=== PATIENT | female | born 1935 | race Hispanic/Latino ===

== ENCOUNTER → 2017-11-16 | Outpatient (CLI) | payer MEDICARE ==
[~2017-11-16] MED LIST: AMLO2.5T PO; AMOX-426 PO; CARV12.511 PO; CILO100T PO; CITA10TA7 PO; CLOP75TA32 PO; CYCL30DR OU; DOXY-252 PO; ECOTRIN PO; FURO20TA4 PO; ISOS30TA6 PO; LATA2.5D2 OU; LEVO75TA10 PO; LORA-997 PO; LOVA20TA3 PO; NITR1PAT6 TD; PANT20TA12 PO
== END | disposition home or self-care (01) ==
LOC: SHCH 13:32
PROVIDERS: ATTEND Internal Medicine Cardiovascular Disease
DX: I73.9 Peripheral vascular disease, unspecified (principal)
CPT/HCPCS: 93925

== ENCOUNTER 2017-11-23 10:16 | Observation (INO) | payer MEDICARE ==
[2017-11-22 08:50] VITALS: BP 177/91
[2017-11-22 08:54] LABS: BASOPHILS % (AUTO) 0.6 % (0.0-5.0); EOSINOPHILS % (AUTO) 5.8 % (0.0-8.0); HEMATOCRIT 33.2 % (36-48); LYMPHOCYTES % (AUTO) 44.7 % (21.0-51.0); MEAN CORPUSCULAR HEMOGLOBIN 30.1 pg (27.0-33.0); MEAN CORPUSCULAR HGB CONC 33.9 g/dL (32.0-36.0); MONOCYTES % (AUTO) 9.8 % (3.0-13.0); NEUTROPHILS % (AUTO) 39.1 % (40.0-77.0); PLATELET COUNT (AUTO) 378 K/uL (130-400); RED BLOOD CELL COUNT(AUTO) 3.73 MIL/uL (4.00-5.50); RED CELL DISTRIBUTION WIDTH 13.4 % (11.0-15.5); WHITE BLOOD COUNT (AUTO) 8.3 K/uL (4.8-10.8)
[2017-11-22 08:58] LABS: APPEARANCE,URINE Cloudy (CLEAR); BILIRUBIN,URINE Negative (NEGATIVE); COLOR,URINE Yellow (YELLOW); GLUCOSE, URINE (UA) Negative (NEGATIVE); KETONES,URINE Negative (NEGATIVE); LEUKOCYTE ESTERASE ,URINE Large (NEGATIVE); NITRATE,URINE Negative (NEGATIVE); OCCULT BLOOD,URINE Negative (NEGATIVE); PH,URINE 6.5 (5.0-8.0); PROTEIN,URINE Negative (NEGATIVE); UROBILINOGEN,URINE 0.2 mg/dL (0.2-1.0)
[2017-11-22 09:00] LABS: CREATININE 1.3 mg/dL (0.5-1.5); POTASSIUM 3.8 mmol/L (3.5-5.1)
[2017-11-22 09:16] LABS: BACTERIA,URINE Many /HPF (None Seen); RBC,URINE 0-1 /HPF (0-1); WBC,URINE 51-100 /HPF (0-1)
[2017-11-22 09:16] LABS: INR 0.93 (0.85-1.15); PARTIAL THROMBOPLASTIN TIME 26.5 SEC (26.3-35.5); PROTHROMBIN TIME 9.8 SEC (9.6-11.6)
[2017-11-22 09:17] LABS: SQUAMOUS EPITHELIAL CELL,UR Rare /LPF (0-2)
[~2017-11-23] VITALS: Ht 147.3 cm; Wt 51.7 kg
[~2017-11-23 10:16] MED LIST changes: -AMOX-426 PO; -CILO100T PO; -CITA10TA7 PO; -DOXY-252 PO; -NITR1PAT6 TD
[2017-11-23] MEDS ORDERED: NITR1PAT6 TD (12:03)
[2017-11-23] MEDS ORDERED: SODIUM CHLORIDE 0.9% 1000ML 1,000 ML IV ONE (12:05)
[2017-11-23] MEDS ORDERED: LIDOCAINE HCL 2% 20ML ONE (15:52)
[2017-11-23] MEDS ORDERED: ISOVUE-300 100 ML VIAL IV ONE ×2 (15:52→16:56)
[2017-11-23] MEDS ORDERED: NITROGLYCERIN 5 MG/ML 10 ML VIAL IV ONE (15:52)
[2017-11-23] MEDS ORDERED: HEPARIN SODIUM 1000UNIT/ML 10ML VIAL ONE (15:52)
[2017-11-23] MEDS ORDERED: HYDRALAZINE HCL 20 MG/ML VIAL ONE (17:06)
[2017-11-23] MEDS ORDERED: LABETALOL 20 MG/4 ML DISP.SYRIN IV ONE (17:15)
[2017-11-23] MEDS ORDERED: SODIUM CHLORIDE 0.9% 1000ML 1,000 ML IV SCH (17:24)
[2017-11-23] MEDS ORDERED: CARVEDILOL 12.5 MG TABLET PO PRN (17:30)
[2017-11-23] MEDS ORDERED: NITROGLYCERIN 0.2 MG/HR PATCH TD SCH (17:30)
[2017-11-23] MEDS ORDERED: CILO100T PO (17:31)
[2017-11-23] MEDS ORDERED: ACETAMINOPHEN-CODEINE 300/30MG TAB PO PRN ×2 (17:45)
[2017-11-23 18:23] VITALS: BP 137/61
[2017-11-23] MEDS ORDERED: ACETAMINOPHEN-CODEINE 300/30MG TAB ONE (18:36)
[2017-11-23 19:10] LABS: POTASSIUM 3.4 mmol/L (3.5-5.1)
[2017-11-23 20:00] VITALS: BP 137/61
[2017-11-23] MEDS: CYCLOSPORINE OU SCH (21:00)
[2017-11-23] MEDS: CILOSTAZOL 100 MG TAB PO SCH (21:26)
[2017-11-23] MEDS: LATANOPROST 2.5 ML DROPS OU SCH (21:26)
[2017-11-23 23:38] VITALS: BP 127/53
[2017-11-24] MEDS ORDERED: CEFTRIAXONE 1GM/D5W 50ML 50 ML IV SCH
[2017-11-24] MEDS ORDERED: CEFTRIAXONE SODIUM 1 GM ONE (00:03)
[2017-11-24 03:56] VITALS: BP 140/56
[2017-11-24 04:25] LABS: APPEARANCE,URINE Cloudy (CLEAR); BILIRUBIN,URINE Negative (NEGATIVE); COLOR,URINE Yellow (YELLOW); GLUCOSE, URINE (UA) Negative (NEGATIVE); KETONES,URINE Negative (NEGATIVE); LEUKOCYTE ESTERASE ,URINE Trace (NEGATIVE); NITRATE,URINE Negative (NEGATIVE); OCCULT BLOOD,URINE Negative (NEGATIVE); PROTEIN,URINE Negative (NEGATIVE); UROBILINOGEN,URINE 0.2 mg/dL (0.2-1.0)
[2017-11-24 04:38] LABS: HEMATOCRIT 27.1 % (36-48); MEAN CORPUSCULAR HEMOGLOBIN 30.1 pg (27.0-33.0); MEAN CORPUSCULAR VOLUME 88.5 fL (79-99); PLATELET COUNT (AUTO) 340 K/uL (130-400); RED BLOOD CELL COUNT(AUTO) 3.06 MIL/uL (4.00-5.50); RED CELL DISTRIBUTION WIDTH 13.5 % (11.0-15.5); WHITE BLOOD COUNT (AUTO) 7.2 K/uL (4.8-10.8)
[2017-11-24 04:45] LABS: AMORPHOUS SEDIMENT,UR Few /LPF (None Seen); BACTERIA,URINE None Seen /HPF (None Seen); RBC,URINE None Seen /HPF (0-1); SQUAMOUS EPITHELIAL CELL,UR Rare /LPF (0-2); WBC,URINE 0-1 /HPF (0-1)
[2017-11-24 04:58] LABS: ALBUMIN 2.4 g/dL (3.5-5.0); BILIRUBIN,TOTAL 0.2 mg/dL (0.2-1.0); CREATININE 1.2 mg/dL (0.5-1.5); TOTAL PROTEIN, SERUM 6.4 g/dL (6.0-8.3)
[2017-11-24] MEDS ORDERED: LEVOTHYROXINE 75 MCG TABLET PO SCH (06:30)
[2017-11-24 07:00] VITALS: BP 139/57
[2017-11-24] MEDS ORDERED: AMLODIPINE BESYLATE 2.5 MG TAB PO SCH (09:00)
[2017-11-24] MEDS ORDERED: PANTOPRAZOLE SODIUM 40 MG TABLET.DR PO SCH (09:00)
[2017-11-24] MEDS: CYCLOSPORINE OU SCH ×2 (09:00→21:00)
[2017-11-24] MEDS ORDERED: ISOSORBIDE MONO 30MG TAB SR PO SCH (09:00)
[2017-11-24] MEDS ORDERED: CLOPIDOGREL BISULFATE 75 MG TAB PO SCH (09:00)
[2017-11-24 10:30] LABS: % IRON SATURATION 9.4 % (22-44)
[2017-11-24 10:38] LABS: RETICULOCYTE % (AUTO) 1.79 % (0.42-2.23)
[2017-11-24] MEDS ORDERED: ASPIRIN 81 MG EC TAB PO SCH (12:00)
[2017-11-24] MEDS ORDERED: LORATADINE 10 MG TABLET PO SCH (12:00)
[2017-11-24 12:14] VITALS: BP 132/59
[2017-11-24] MEDS: CILOSTAZOL 100 MG TAB PO SCH ×2 (14:55→21:22)
[2017-11-24 16:00] VITALS: BP 126/53
[2017-11-24 19:20] VITALS: BP 122/48
[2017-11-24] MEDS ORDERED: CEFTRIAXONE SODIUM 1 GM IVP SCH (21:00)
[2017-11-24] MEDS: LATANOPROST 2.5 ML DROPS OU SCH (21:22)
[2017-11-25] MEDS ORDERED: FUROSEMIDE 20 MG TABLET PO SCH (09:00)
== END 2017-11-24 21:30 | disposition home or self-care (01) ==
LOC: DAH 10:16 → 3DH 10:17 → DAH 10:17
PROVIDERS: ADMIT Internal Medicine; ATTEND Internal Medicine
DX: I70.221 Atherosclerosis of native arteries of extremities with rest pain, right leg (principal); E11.51 Type 2 diabetes mellitus with diabetic peripheral angiopathy without gangrene; E78.5 Hyperlipidemia, unspecified; E87.6 Hypokalemia; I10 Essential (primary) hypertension; I25.10 Atherosclerotic heart disease of native coronary artery without angina pectoris; I49.5 Sick sinus syndrome; N39.0 Urinary tract infection, site not specified; Z82.49 Family history of ischemic heart disease and other diseases of the circulatory system; Z85.3 Personal history of malignant neoplasm of breast; Z95.0 Presence of cardiac pacemaker; Z95.1 Presence of aortocoronary bypass graft; Z95.5 Presence of coronary angioplasty implant and graft
CPT/HCPCS: 36415 ×3; 37224; 71045; 75625; 75710; 80048; 80051; 80053; 81001 ×2; 82607; 82728; 82746; 82948 ×6; 83735; 85025; 85027; 85347; 85610; 85730; 87088; 93005; 96374; A4218 ×2; A4344; A4606; C1725 ×2; C1760; C1769 ×2; C1893; C1894; G0378 ×35; J0360; J0696 ×3; J1644; J3490 ×2; J7030 ×2; Q9967

== ENCOUNTER 2017-12-01 18:52 | Inpatient (IN) | payer MEDICARE ==
[~2017-12-01] VITALS: Ht 160 cm; Wt 55.2 kg
[~2017-12-01 18:52] MED LIST changes: +CILO100T PO; -LOVA20TA3 PO; +NITR1PAT6 TD
[2017-12-01 20:09] LABS: EOSINOPHILS % (AUTO) 4.5 % (0.0-8.0); LYMPHOCYTES % (AUTO) 38.5 % (21.0-51.0); MEAN CORPUSCULAR HEMOGLOBIN 30.3 pg (27.0-33.0); MEAN CORPUSCULAR HGB CONC 34.3 g/dL (32.0-36.0); MEAN CORPUSCULAR VOLUME 88.3 fL (79-99); MONOCYTES % (AUTO) 8.5 % (3.0-13.0); NEUTROPHILS % (AUTO) 46.5 % (40.0-77.0); PLATELET COUNT (AUTO) 407 K/uL (130-400); RED BLOOD CELL COUNT(AUTO) 3.39 MIL/uL (4.00-5.50); RED CELL DISTRIBUTION WIDTH 13.4 % (11.0-15.5); WHITE BLOOD COUNT (AUTO) 9.4 K/uL (4.8-10.8)
[2017-12-01 20:26] LABS: CREATININE 1.4 mg/dL (0.5-1.5); INR 0.92 (0.85-1.15); PARTIAL THROMBOPLASTIN TIME 26.3 SEC (26.3-35.5); POTASSIUM 3.7 mmol/L (3.5-5.1); PROTHROMBIN TIME 9.7 SEC (9.6-11.6)
[2017-12-01 20:39] LABS: BILIRUBIN,TOTAL 0.3 mg/dL (0.2-1.0); CREATINE KINASE MB 3.9 ng/mL (0.5-3.6); TOTAL PROTEIN, SERUM 8.3 g/dL (6.0-8.3)
[2017-12-01 20:52] LABS: B-TYPE NATRIURETIC PEPTIDE 218 pg/mL (0-100)
[2017-12-01 22:51] LABS: APPEARANCE,URINE Clear (CLEAR); BILIRUBIN,URINE Negative (NEGATIVE); COLOR,URINE Yellow (YELLOW); GLUCOSE, URINE (UA) Negative (NEGATIVE); KETONES,URINE Negative (NEGATIVE); LEUKOCYTE ESTERASE ,URINE Negative (NEGATIVE); NITRATE,URINE Negative (NEGATIVE); OCCULT BLOOD,URINE Negative (NEGATIVE); PH,URINE 6.5 (5.0-8.0); PROTEIN,URINE Negative (NEGATIVE); UROBILINOGEN,URINE 0.2 mg/dL (0.2-1.0)
[2017-12-02] VITALS (9 sets, daily range): BP systolic 126–160; BP diastolic 37–103
[2017-12-02] MEDS ORDERED: GLUCAGON 1MG KIT 1 MG ML IM PRN (02:45)
[2017-12-02] MEDS ORDERED: DEXTROSE 50%-WATER 50 ML DISP.SYRIN IV PRN (02:45)
[2017-12-02] MEDS ORDERED: LIDOCAINE HCL-MPF 1% 2ML VIAL IVP PRN (02:45)
[2017-12-02] MEDS ORDERED: ACETAMINOPHEN 325 MG TAB PO PRN (02:45)
[2017-12-02] MEDS ORDERED: HYDRALAZINE HCL 20 MG/ML VIAL IV PRN (02:45)
[2017-12-02] MEDS ORDERED: POTASSIUM CHLORIDE 20MEQ/100ML 100 ML IV PRN (02:45)
[2017-12-02] MEDS ORDERED: LACTULOSE 20 GM/30 ML UDCUP PO PRN (02:45)
[2017-12-02] MEDS ORDERED: POTASSIUM CHLORIDE 10% ELIXIR 20 MEQ/15 ML UDCUP PO PRN (02:45)
[2017-12-02] MEDS ORDERED: FUROSEMIDE 10 MG/ML 2ML VIAL ONE (02:52)
[2017-12-02 04:18] LABS: CREATINE KINASE MB 2.7 ng/mL (0.5-3.6); CREATINE KINASE, TOTAL 86 U/L (21-232); MYOGLOBIN 245 ng/mL (10-92); TROPONIN I < 0.04 ng/mL (0.00-0.06)
[2017-12-02] MEDS ORDERED: HYDRALAZINE HCL 20 MG/ML VIAL ONE (04:25)
[2017-12-02] MEDS ORDERED: ACETAMINOPHEN 325 MG TAB ONE (05:20)
[2017-12-02 07:11] LABS: BASOPHILS % (AUTO) 0.9 % (0.0-5.0); EOSINOPHILS % (AUTO) 4.1 % (0.0-8.0); HEMATOCRIT 27.5 % (36-48); LYMPHOCYTES % (AUTO) 27.2 % (21.0-51.0); MEAN CORPUSCULAR HEMOGLOBIN 29.8 pg (27.0-33.0); MEAN CORPUSCULAR HGB CONC 34.1 g/dL (32.0-36.0); MEAN CORPUSCULAR VOLUME 87.3 fL (79-99); MONOCYTES % (AUTO) 11.5 % (3.0-13.0); NEUTROPHILS % (AUTO) 56.3 % (40.0-77.0); PLATELET COUNT (AUTO) 366 K/uL (130-400); RED BLOOD CELL COUNT(AUTO) 3.15 MIL/uL (4.00-5.50); RED CELL DISTRIBUTION WIDTH 13.3 % (11.0-15.5); WHITE BLOOD COUNT (AUTO) 9.7 K/uL (4.8-10.8)
[2017-12-02] MEDS: INSULIN HUMULIN R 100 UNIT/ML 3ML SQ SCH ×4 (07:30→21:00)
[2017-12-02 07:36] LABS: CREATINE KINASE MB 3.1 ng/mL (0.5-3.6); CREATINE KINASE, TOTAL 106 U/L (21-232); MYOGLOBIN 294 ng/mL (10-92); TROPONIN I < 0.04 ng/mL (0.00-0.06)
[2017-12-02 07:37] LABS: HEMOGLOBIN A1C 5.8 % (4.0-6.0)
[2017-12-02 07:39] LABS: CREATININE 1.3 mg/dL (0.5-1.5); POTASSIUM 3.4 mmol/L (3.5-5.1); THYROID STIMULATING HORMONE 2.5 uIU/mL (0.36-3.74)
[2017-12-02 08:47] LABS: ERYTHROCYTE SEDIMENTATION RATE 90 MM/HR (0-15)
[2017-12-02] MEDS ORDERED: AMOX-426 PO (08:59)
[2017-12-02] MEDS ORDERED: ENOXAPARIN SODIUM 30 MG/0.3 ML SQ SCH (09:00)
[2017-12-02] MEDS ORDERED: NITROGLYCERIN 0.2 MG/HR PATCH TD SCH (10:15)
[2017-12-02] MEDS ORDERED: CILOSTAZOL 100 MG TAB PO SCH (10:15)
[2017-12-02] MEDS ORDERED: AMOXICILLIN/POTASSIUM CLAV 500-125 TABLET PO SCH (10:15)
[2017-12-02 12:04] LABS: CREATINE KINASE, TOTAL 102 U/L (21-232); MYOGLOBIN 257 ng/mL (10-92); TROPONIN I < 0.04 ng/mL (0.00-0.06)
[2017-12-02] MEDS: LORATADINE 10 MG TABLET PO SCH (13:26)
[2017-12-02] MEDS: ASPIRIN 81 MG EC TAB PO SCH (13:26)
[2017-12-02] MEDS: FAMOTIDINE 20MG TAB 20 MG TAB PO SCH ×2 (13:26→21:17)
[2017-12-02] MEDS: FUROSEMIDE 10 MG/ML 2ML VIAL IV SCH ×2 (13:27→21:19)
[2017-12-02] MEDS: POTASSIUM CHLORIDE 20 MEQ ERTAB PO PRN ×2 (14:11→18:24)
[2017-12-02] MEDS: ENOXAPARIN SODIUM 60 MG/0.6 ML SQ SCH ×2 (14:35→21:19)
[2017-12-02] MEDS: CYCLOSPORINE OU SCH (21:00)
[2017-12-02] MEDS: LATANOPROST 2.5 ML DROPS OU SCH (21:17)
[2017-12-02] MEDS: CARVEDILOL 3.125 MG TABLET PO SCH (21:17)
[2017-12-03 03:36] VITALS: BP 125/59
[2017-12-03 05:26] LABS: CREATININE 1.3 mg/dL (0.5-1.5); POTASSIUM 3.6 mmol/L (3.5-5.1)
[2017-12-03] MEDS: INSULIN HUMULIN R 100 UNIT/ML 3ML SQ SCH ×4 (05:48→21:00)
[2017-12-03] MEDS: LEVOTHYROXINE 75 MCG TABLET PO SCH ×2 (05:58→06:58)
[2017-12-03] MEDS: POTASSIUM CHLORIDE 20 MEQ ERTAB PO PRN ×2 (05:58→06:59)
[2017-12-03 07:00] VITALS: BP 113/50
[2017-12-03] MEDS: CYCLOSPORINE OU SCH ×2 (09:00→21:00)
[2017-12-03] MEDS: FAMOTIDINE 20MG TAB 20 MG TAB PO SCH ×2 (09:00→22:19)
[2017-12-03] MEDS: FUROSEMIDE 10 MG/ML 2ML VIAL IV SCH ×2 (10:16→22:18)
[2017-12-03] MEDS: ISOSORBIDE MONO 30MG TAB SR PO SCH (10:16)
[2017-12-03] MEDS: CLOPIDOGREL BISULFATE 75 MG TAB PO SCH (10:16)
[2017-12-03] MEDS: ENOXAPARIN SODIUM 60 MG/0.6 ML SQ SCH (10:16)
[2017-12-03] MEDS: CARVEDILOL 3.125 MG TABLET PO SCH ×2 (10:24→22:19)
[2017-12-03 11:00] VITALS: BP 170/71
[2017-12-03] MEDS: ASPIRIN 81 MG EC TAB PO SCH (12:20)
[2017-12-03] MEDS: LORATADINE 10 MG TABLET PO SCH (12:20)
[2017-12-03 16:00] VITALS: BP 124/71
[2017-12-03 20:09] VITALS: BP 136/59
[2017-12-03] MEDS: LATANOPROST 2.5 ML DROPS OU SCH (22:18)
[2017-12-04] VITALS (7 sets, daily range): BP systolic 125–168; BP diastolic 46–70
[2017-12-04 04:33] LABS: CREATININE 1.4 mg/dL (0.5-1.5); POTASSIUM 3.6 mmol/L (3.5-5.1)
[2017-12-04] MEDS: INSULIN HUMULIN R 100 UNIT/ML 3ML SQ SCH ×4 (05:19→21:00)
[2017-12-04] MEDS: LEVOTHYROXINE 75 MCG TABLET PO SCH (06:24)
[2017-12-04] MEDS: POTASSIUM CHLORIDE 20 MEQ ERTAB PO PRN (06:41)
[2017-12-04] MEDS ORDERED: FUROSEMIDE 20 MG TABLET PO SCH (09:00)
[2017-12-04] MEDS: CLOPIDOGREL BISULFATE 75 MG TAB PO SCH (10:34)
[2017-12-04] MEDS: ASPIRIN 81 MG EC TAB PO SCH (10:34)
[2017-12-04] MEDS: LORATADINE 10 MG TABLET PO SCH (10:34)
[2017-12-04] MEDS: ISOSORBIDE MONO 30MG TAB SR PO SCH (10:34)
[2017-12-04] MEDS: CARVEDILOL 3.125 MG TABLET PO SCH ×2 (10:34→20:34)
[2017-12-04] MEDS: FUROSEMIDE 20 MG TABLET PO SCH ×2 (10:35→17:27)
[2017-12-04] MEDS: FAMOTIDINE 20MG TAB 20 MG TAB PO SCH (10:38)
[2017-12-04] MEDS: ENOXAPARIN SODIUM 60 MG/0.6 ML SQ SCH (10:40)
[2017-12-04] MEDS: CYCLOSPORINE OU SCH ×2 (10:49→20:40)
[2017-12-04] MEDS ORDERED: VANCOMYCIN PROTOCOL PER PHARMACY IV SCH (11:45)
[2017-12-04] MEDS ORDERED: COMPOUND IV REFRIGERATED 1 EACH IVSOLN MISC PRN (12:00)
[2017-12-04] MEDS ORDERED: VANCOMYCIN 1.75 GM in SODIUM CHLORIDE 0.9% 250 ML IV ONE (12:00)
[2017-12-04] MEDS ORDERED: PHARMACY COMMUNICATION MISC SCH (12:00)
[2017-12-04] MEDS: IPRATROPIUM 0.5 MG/2.5 ML INH IH SCH (18:27)
[2017-12-04] MEDS: LATANOPROST 2.5 ML DROPS OU SCH (20:35)
[2017-12-05] MEDS: IPRATROPIUM 0.5 MG/2.5 ML INH IH SCH ×4 (00:04→19:02)
[2017-12-05 03:41] VITALS: BP 129/39
[2017-12-05] MEDS: LEVOTHYROXINE 75 MCG TABLET PO SCH (05:45)
[2017-12-05] MEDS: INSULIN HUMULIN R 100 UNIT/ML 3ML SQ SCH ×4 (06:31→21:00)
[2017-12-05 07:17] VITALS: BP 131/53
[2017-12-05] MEDS: CLOPIDOGREL BISULFATE 75 MG TAB PO SCH (08:52)
[2017-12-05] MEDS: PANTOPRAZOLE SODIUM 40 MG TABLET.DR PO SCH (08:52)
[2017-12-05] MEDS: ENOXAPARIN SODIUM 60 MG/0.6 ML SQ SCH (08:52)
[2017-12-05] MEDS: CARVEDILOL 6.25 MG TABLET PO SCH ×2 (08:53→22:57)
[2017-12-05] MEDS: ISOSORBIDE MONO 30MG TAB SR PO SCH (08:53)
[2017-12-05] MEDS: FUROSEMIDE 20 MG TABLET PO SCH (08:54)
[2017-12-05] MEDS: CYCLOSPORINE OU SCH ×2 (09:00→22:58)
[2017-12-05 11:32] VITALS: BP 108/60
[2017-12-05] MEDS: ASPIRIN 81 MG EC TAB PO SCH (11:54)
[2017-12-05] MEDS: LORATADINE 10 MG TABLET PO SCH (11:54)
[2017-12-05] MEDS: VANCOMYCIN 750MG + NS 250 ML IV SCH ×2 (12:00)
[2017-12-05 16:00] VITALS: BP 116/52
[2017-12-05 20:00] VITALS: BP 145/60
[2017-12-05] MEDS: LATANOPROST 2.5 ML DROPS OU SCH (22:57)
[2017-12-06] VITALS: BP 136/54
[2017-12-06] MEDS: IPRATROPIUM 0.5 MG/2.5 ML INH IH SCH ×5 (00:32→23:47)
[2017-12-06 03:58] LABS: HEMATOCRIT 25.1 % (36-48); MEAN CORPUSCULAR HEMOGLOBIN 31.1 pg (27.0-33.0); MEAN CORPUSCULAR HGB CONC 35.9 g/dL (32.0-36.0); MEAN CORPUSCULAR VOLUME 86.6 fL (79-99); PLATELET COUNT (AUTO) 371 K/uL (130-400); RED CELL DISTRIBUTION WIDTH 13.5 % (11.0-15.5); WHITE BLOOD COUNT (AUTO) 8.8 K/uL (4.8-10.8)
[2017-12-06 04:00] VITALS: BP 120/41
[2017-12-06] MEDS: INSULIN HUMULIN R 100 UNIT/ML 3ML SQ SCH ×4 (05:55→21:00)
[2017-12-06] MEDS: LEVOTHYROXINE 75 MCG TABLET PO SCH (05:57)
[2017-12-06 08:00] VITALS: BP 150/70
[2017-12-06] MEDS: CYCLOSPORINE OU SCH ×2 (09:00→22:14)
[2017-12-06] MEDS: PANTOPRAZOLE SODIUM 40 MG TABLET.DR PO SCH (10:17)
[2017-12-06] MEDS: CLOPIDOGREL BISULFATE 75 MG TAB PO SCH (10:17)
[2017-12-06] MEDS: FUROSEMIDE 20 MG TABLET PO SCH (10:17)
[2017-12-06] MEDS: ISOSORBIDE MONO 30MG TAB SR PO SCH (10:18)
[2017-12-06] MEDS: CARVEDILOL 6.25 MG TABLET PO SCH ×2 (10:18→22:14)
[2017-12-06] MEDS: HONEY 1 APPL/ML TUBE TP SCH (10:19)
[2017-12-06] MEDS: ENOXAPARIN SODIUM 60 MG/0.6 ML SQ SCH (10:19)
[2017-12-06 11:00] VITALS: BP 132/61
[2017-12-06] MEDS: LORATADINE 10 MG TABLET PO SCH (12:40)
[2017-12-06] MEDS: AMOXICILLIN/POTASSIUM CLAV 500-125 TABLET PO SCH ×2 (12:40→22:11)
[2017-12-06] MEDS: ASPIRIN 81 MG EC TAB PO SCH (12:40)
[2017-12-06] MEDS: VANCOMYCIN 750MG + NS 250 ML IV SCH ×2 (12:40)
[2017-12-06 16:00] VITALS: BP 126/56
[2017-12-06 20:00] VITALS: BP 144/62
[2017-12-06] MEDS: LATANOPROST 2.5 ML DROPS OU SCH (22:12)
[2017-12-07] VITALS (7 sets, daily range): BP systolic 125–171; BP diastolic 51–69
[2017-12-07] MEDS: LEVOTHYROXINE 75 MCG TABLET PO SCH (06:22)
[2017-12-07] MEDS: INSULIN HUMULIN R 100 UNIT/ML 3ML SQ SCH ×4 (06:34→20:40)
[2017-12-07] MEDS: IPRATROPIUM 0.5 MG/2.5 ML INH IH SCH ×3 (07:09→19:26)
[2017-12-07] MEDS: FUROSEMIDE 20 MG TABLET PO SCH (09:20)
[2017-12-07] MEDS: ISOSORBIDE MONO 30MG TAB SR PO SCH (09:20)
[2017-12-07] MEDS: AMOXICILLIN/POTASSIUM CLAV 500-125 TABLET PO SCH ×2 (09:21→23:16)
[2017-12-07] MEDS: CLOPIDOGREL BISULFATE 75 MG TAB PO SCH (09:21)
[2017-12-07] MEDS: CARVEDILOL 6.25 MG TABLET PO SCH ×2 (09:21→20:40)
[2017-12-07] MEDS: PANTOPRAZOLE SODIUM 40 MG TABLET.DR PO SCH (09:21)
[2017-12-07] MEDS: CYCLOSPORINE OU SCH ×2 (09:27→20:40)
[2017-12-07] MEDS: HONEY 1 APPL/ML TUBE TP SCH (15:05)
[2017-12-07] MEDS: ASPIRIN 81 MG EC TAB PO SCH (15:12)
[2017-12-07] MEDS: LORATADINE 10 MG TABLET PO SCH (15:12)
[2017-12-07] MEDS: VANCOMYCIN 750MG + NS 250 ML IV SCH ×2 (17:12)
[2017-12-07] MEDS: ENOXAPARIN SODIUM 60 MG/0.6 ML SQ SCH (17:14)
[2017-12-07] MEDS: LATANOPROST 2.5 ML DROPS OU SCH (20:39)
[2017-12-08] MEDS: IPRATROPIUM 0.5 MG/2.5 ML INH IH SCH ×4 (01:07→18:31)
[2017-12-08 04:00] VITALS: BP 151/74
[2017-12-08] MEDS: INSULIN HUMULIN R 100 UNIT/ML 3ML SQ SCH ×2 (06:38→11:30)
[2017-12-08] MEDS: LEVOTHYROXINE 75 MCG TABLET PO SCH (06:45)
[2017-12-08 08:14] VITALS: BP 167/71
[2017-12-08] MEDS: FUROSEMIDE 20 MG TABLET PO SCH (08:16)
[2017-12-08] MEDS: PANTOPRAZOLE SODIUM 40 MG TABLET.DR PO SCH (08:16)
[2017-12-08] MEDS: ISOSORBIDE MONO 30MG TAB SR PO SCH (08:16)
[2017-12-08] MEDS: CLOPIDOGREL BISULFATE 75 MG TAB PO SCH (08:16)
[2017-12-08] MEDS: CARVEDILOL 6.25 MG TABLET PO SCH (08:17)
[2017-12-08 12:00] VITALS: BP 150/60
[2017-12-08] MEDS: VANCOMYCIN 750MG + NS 250 ML IV SCH ×2 (14:20)
[2017-12-08] MEDS: ASPIRIN 81 MG EC TAB PO SCH (14:20)
[2017-12-08] MEDS: AMOXICILLIN/POTASSIUM CLAV 500-125 TABLET PO SCH (14:20)
[2017-12-08] MEDS: LORATADINE 10 MG TABLET PO SCH (14:21)
[2017-12-08 16:00] VITALS: BP 145/63
== END 2017-12-08 19:45 | DRG 622 ==
LOC: EDH 18:52 → EDHIP 23:30 → 2CH 12-02 08:06 → 3AH 12-05 16:12
PROVIDERS: ADMIT Internal Medicine; ATTEND Internal Medicine
PROC: 0JBR0ZZ Excision of Left Foot Subcutaneous Tissue and Fascia, Open Approach (ICD-10-PCS; principal; 2017-12-03)
DX: E11.621 Type 2 diabetes mellitus with foot ulcer (principal); J96.90 Respiratory failure, unspecified, unspecified whether with hypoxia or hypercapnia; M86.672 Other chronic osteomyelitis, left ankle and foot; E11.51 Type 2 diabetes mellitus with diabetic peripheral angiopathy without gangrene; E11.22 Type 2 diabetes mellitus with diabetic chronic kidney disease; L03.116 Cellulitis of left lower limb; I25.82 Chronic total occlusion of coronary artery; I13.0 Hypertensive heart and chronic kidney disease with heart failure and stage 1 through stage 4 chronic kidney disease, or unspecified chronic kidney disease; I48.91 Unspecified atrial fibrillation; L97.529 Non-pressure chronic ulcer of other part of left foot with unspecified severity; D64.9 Anemia, unspecified; E03.9 Hypothyroidism, unspecified; E11.649 Type 2 diabetes mellitus with hypoglycemia without coma; E11.69 Type 2 diabetes mellitus with other specified complication; E78.5 Hyperlipidemia, unspecified; F02.80 Dementia in other diseases classified elsewhere, unspecified severity, without behavioral disturbance, psychotic disturbance, mood disturbance, and anxiety; G30.9 Alzheimer's disease, unspecified; I25.10 Atherosclerotic heart disease of native coronary artery without angina pectoris; I48.2 Chronic atrial fibrillation; I50.9 Heart failure, unspecified; J84.10 Pulmonary fibrosis, unspecified; L60.0 Ingrowing nail; N18.3 Chronic kidney disease, stage 3 (moderate); Z74.01 Bed confinement status; Z85.3 Personal history of malignant neoplasm of breast; Z90.11 Acquired absence of right breast and nipple; Z95.0 Presence of cardiac pacemaker; Z95.5 Presence of coronary angioplasty implant and graft
CPT/HCPCS: 36415; 71045; 71250; 73620; 78315; 80048; 80053; 80061; 80202; 81003; 82550; 82553; 82948; 83036; 83605; 83874; 83880; 84443; 84484; 85025; 85027; 85610; 85651; 85730; 86141; 87070; 87076; 93005; 93306; 93925; 94640; 94664; 99291; A9503; J0360; J1650; J1815; J1940; J3370; J7030

== ENCOUNTER 2018-07-11 03:19 | Inpatient (IN) | payer MEDICARE ==
[~2018-07-11] VITALS: Ht 152.4 cm; Wt 53.6 kg
[~2018-07-11 03:19] MED LIST changes: -AMLO2.5T PO; +AMLO2.5T3 PO; +AMOX-426 PO
[2018-07-11 03:42] LABS: BASOPHILS % (AUTO) 0.3 % (0.0-5.0); EOSINOPHILS % (AUTO) 0.7 % (0.0-8.0); HEMATOCRIT 28.5 % (36-48); LYMPHOCYTES % (AUTO) 11.9 % (21.0-51.0); MEAN CORPUSCULAR HEMOGLOBIN 24.2 pg (27.0-33.0); MEAN CORPUSCULAR HGB CONC 32.8 g/dL (32.0-36.0); MEAN CORPUSCULAR VOLUME 73.9 fL (79-99); NEUTROPHILS % (AUTO) 81.1 % (40.0-77.0); PLATELET COUNT (AUTO) 324 K/uL (130-400); RED BLOOD CELL COUNT(AUTO) 3.85 MIL/uL (4.00-5.50); WHITE BLOOD COUNT (AUTO) 17.5 K/uL (4.8-10.8)
[2018-07-11] MEDS ORDERED: ACETAMINOPHEN EXTRA STRENGTH 500 MG TABLET ONE (03:50)
[2018-07-11] MEDS ORDERED: CEFTRIAXONE SODIUM 2 GM VIAL ONE (03:50)
[2018-07-11] MEDS ORDERED: SODIUM CHLORIDE 0.9% 1000ML 1,000 ML IV ONE (03:50)
[2018-07-11 03:56] LABS: CARBON DIOXIDE 28 mmol/L (21-32); CHLORIDE 102 mmol/L (101-111); CREATININE 1.5 mg/dL (0.5-1.5); GLOMERULAR FILTR. RATE CALC 35 mL/min (>60); GLUCOSE,RANDOM 186 mg/dL (70-105); POTASSIUM 3.6 mmol/L (3.5-5.1); SODIUM SERUM 138 mmol/L (136-145); UREA NITROGEN, BLOOD 25 mg/dL (7-18)
[2018-07-11 04:02] LABS: INR 1.02 (0.85-1.15); PARTIAL THROMBOPLASTIN TIME 30.9 SEC (26.3-35.5); PROTHROMBIN TIME 10.7 SEC (9.6-11.6)
[2018-07-11 04:07] LABS: ALANINE AMINOTRANSFERASE 30 U/L (12-78); ALBUMIN 2.9 g/dL (3.5-5.0); ASPARTATE AMINOTRANSFERASE 38 U/L (10-37); BILIRUBIN,TOTAL 0.3 mg/dL (0.2-1.0); CREATINE KINASE, TOTAL 134 U/L (21-232); MYOGLOBIN 407 ng/mL (10-92); TOTAL PROTEIN, SERUM 7.6 g/dL (6.0-8.3); TROPONIN I < 0.04 ng/mL (0.00-0.06)
[2018-07-11 05:26] LABS: APPEARANCE,URINE Clear (CLEAR); BILIRUBIN,URINE Negative (NEGATIVE); COLOR,URINE Yellow (YELLOW); GLUCOSE, URINE (UA) Negative (NEGATIVE); KETONES,URINE Negative (NEGATIVE); LEUKOCYTE ESTERASE ,URINE Moderate (NEGATIVE); NITRATE,URINE Positive (NEGATIVE); OCCULT BLOOD,URINE Trace (NEGATIVE); PH,URINE 5.5 (5.0-8.0); PROTEIN,URINE POS 1+ (NEGATIVE); UROBILINOGEN,URINE 0.2 mg/dL (0.2-1.0)
[2018-07-11 05:40] LABS: BACTERIA,URINE Moderate /HPF (None Seen)
[2018-07-11] MEDS ORDERED: SODIUM CHLORIDE 0.9% 1000ML 1,000 ML IV SCH (06:32)
[2018-07-11] MEDS ORDERED: ONDANSETRON HCL 4 MG/2 ML VIAL IV PRN (06:45)
[2018-07-11] MEDS: CEFTRIAXONE SODIUM 1 GM IVP SCH (06:45)
[2018-07-11] MEDS ORDERED: ACETAMINOPHEN 325 MG TAB PO PRN (06:45)
[2018-07-11 07:00] VITALS: BP 114/51
[2018-07-11 07:14] LABS: HEMOGLOBIN A1C 6.8 % (4.0-6.0)
[2018-07-11] MEDS ORDERED: CETI10TA86 PO (08:24)
[2018-07-11] MEDS ORDERED: APIX2.5T PO (08:24)
[2018-07-11] MEDS ORDERED: CARV6.25 PO (08:24)
[2018-07-11] MEDS ORDERED: FURO20TA4 PO (08:24)
[2018-07-11] MEDS ORDERED: GUAI118L41 PO (08:24)
[2018-07-11] MEDS ORDERED: ENOXAPARIN SODIUM 30 MG/0.3 ML SQ SCH (09:00)
[2018-07-11] MEDS: IPRATROPIUM/ALBUTEROL SULFATE 3 ML SOLUTION IH SCH ×4 (09:45→22:42)
[2018-07-11 11:00] VITALS: BP 137/64
[2018-07-11] MEDS: PANTOPRAZOLE SODIUM 40 MG TABLET.DR PO SCH (11:18)
[2018-07-11 16:00] VITALS: BP 149/64
[2018-07-11] MEDS: LEVOFLOXACIN 250 MG/D5W 50ML 50 ML IV SCH (16:20)
[2018-07-11 20:00] VITALS: BP 150/57
[2018-07-11] MEDS: Cyclosporine (Restasis) 1 EACH OU SCH (21:00)
[2018-07-11] MEDS: CARVEDILOL 6.25 MG TABLET PO SCH (21:10)
[2018-07-11] MEDS: APIXABAN 2.5 MG TABLET PO SCH (21:10)
[2018-07-11] MEDS: LATANOPROST 2.5 ML DROPS OU SCH (21:54)
[2018-07-12] VITALS: BP 151/72
[2018-07-12] MEDS: IPRATROPIUM/ALBUTEROL SULFATE 3 ML SOLUTION IH SCH ×6 (02:18→21:03)
[2018-07-12 03:00] VITALS: BP 138/61
[2018-07-12 04:37] LABS: BASOPHILS % (AUTO) 0.4 % (0.0-5.0); EOSINOPHILS % (AUTO) 4.4 % (0.0-8.0); LYMPHOCYTES % (AUTO) 37.2 % (21.0-51.0); MEAN CORPUSCULAR HGB CONC 32.4 g/dL (32.0-36.0); MEAN CORPUSCULAR VOLUME 74.1 fL (79-99); MONOCYTES % (AUTO) 7.5 % (3.0-13.0); NEUTROPHILS % (AUTO) 50.5 % (40.0-77.0); PLATELET COUNT (AUTO) 228 K/uL (130-400); RED BLOOD CELL COUNT(AUTO) 3.23 MIL/uL (4.00-5.50); RED CELL DISTRIBUTION WIDTH 15.7 % (11.0-15.5); WHITE BLOOD COUNT (AUTO) 9.3 K/uL (4.8-10.8)
[2018-07-12 04:59] LABS: ALBUMIN 2.4 g/dL (3.5-5.0); BILIRUBIN,TOTAL 0.2 mg/dL (0.2-1.0); CREATININE 1.3 mg/dL (0.5-1.5); POTASSIUM 3.6 mmol/L (3.5-5.1); TOTAL PROTEIN, SERUM 6.6 g/dL (6.0-8.3)
[2018-07-12] MEDS: CEFTRIAXONE SODIUM 1 GM IVP SCH (06:16)
[2018-07-12] MEDS: LEVOTHYROXINE 75 MCG TABLET PO SCH (06:16)
[2018-07-12] MEDS: PANTOPRAZOLE SODIUM 40 MG TABLET.DR PO SCH ×2 (06:16→09:29)
[2018-07-12 07:30] VITALS: BP 129/53
[2018-07-12] MEDS: AMLODIPINE BESYLATE 2.5 MG TAB PO SCH (09:00)
[2018-07-12] MEDS: Cyclosporine (Restasis) 1 EACH OU SCH ×2 (09:00→21:00)
[2018-07-12] MEDS: CLOPIDOGREL BISULFATE 75 MG TAB PO SCH (09:28)
[2018-07-12] MEDS: CETIRIZINE HCL 5 MG TABLET PO SCH (09:29)
[2018-07-12] MEDS: CARVEDILOL 6.25 MG TABLET PO SCH ×2 (09:30→21:15)
[2018-07-12] MEDS: APIXABAN 2.5 MG TABLET PO SCH ×2 (09:30→21:16)
[2018-07-12] MEDS: FUROSEMIDE 20 MG TABLET PO SCH (09:30)
[2018-07-12] MEDS: ISOSORBIDE MONO 30MG TAB SR PO SCH (09:31)
[2018-07-12 11:00] VITALS: BP 154/59
[2018-07-12] MEDS: LEVOFLOXACIN 250 MG/D5W 50ML 50 ML IV SCH (13:03)
[2018-07-12 15:59] VITALS: BP 127/55
[2018-07-12 20:00] VITALS: BP 146/69
[2018-07-12] MEDS: LATANOPROST 2.5 ML DROPS OU SCH (21:19)
[2018-07-13] VITALS: BP 132/60
[2018-07-13] MEDS: IPRATROPIUM/ALBUTEROL SULFATE 3 ML SOLUTION IH SCH ×3 (01:24→10:36)
[2018-07-13 04:00] VITALS: BP 157/73
[2018-07-13] MEDS: CEFTRIAXONE SODIUM 1 GM IVP SCH (06:25)
[2018-07-13] MEDS: LEVOTHYROXINE 75 MCG TABLET PO SCH (06:25)
[2018-07-13 06:45] LABS: BASOPHILS % (AUTO) 0.6 % (0.0-5.0); EOSINOPHILS % (AUTO) 7.6 % (0.0-8.0); HEMATOCRIT 25.7 % (36-48); LYMPHOCYTES % (AUTO) 32.8 % (21.0-51.0); MEAN CORPUSCULAR HEMOGLOBIN 24.1 pg (27.0-33.0); MEAN CORPUSCULAR HGB CONC 32.8 g/dL (32.0-36.0); MEAN CORPUSCULAR VOLUME 73.6 fL (79-99); MONOCYTES % (AUTO) 8.4 % (3.0-13.0); NEUTROPHILS % (AUTO) 50.6 % (40.0-77.0); NUCLEATED RED BLOOD CELLS 0.1 % (0.0-0.19); PLATELET COUNT (AUTO) 275 K/uL (130-400); RED BLOOD CELL COUNT(AUTO) 3.49 MIL/uL (4.00-5.50); RED CELL DISTRIBUTION WIDTH 15.7 % (11.0-15.5); WHITE BLOOD COUNT (AUTO) 7.9 K/uL (4.8-10.8)
[2018-07-13 06:54] LABS: CREATININE 1.4 mg/dL (0.5-1.5); POTASSIUM 3.7 mmol/L (3.5-5.1)
[2018-07-13 08:02] VITALS: BP 147/72
[2018-07-13] MEDS: Cyclosporine (Restasis) 1 EACH OU SCH (09:00)
[2018-07-13] MEDS: APIXABAN 2.5 MG TABLET PO SCH (09:22)
[2018-07-13] MEDS: CARVEDILOL 6.25 MG TABLET PO SCH (09:22)
[2018-07-13] MEDS: AMLODIPINE BESYLATE 2.5 MG TAB PO SCH (09:23)
[2018-07-13] MEDS: CETIRIZINE HCL 5 MG TABLET PO SCH (09:23)
[2018-07-13] MEDS: ISOSORBIDE MONO 30MG TAB SR PO SCH (09:23)
[2018-07-13] MEDS: CLOPIDOGREL BISULFATE 75 MG TAB PO SCH (09:23)
[2018-07-13] MEDS: FUROSEMIDE 20 MG TABLET PO SCH (09:27)
[2018-07-13 11:00] VITALS: BP 136/64
[2018-07-13] MEDS ORDERED: LEVO500T2 PO (13:07)
[2018-07-13] MEDS: LEVOFLOXACIN 250 MG/D5W 50ML 50 ML IV SCH (14:29)
== END 2018-07-13 16:30 | disposition home or self-care (01) | DRG 871 ==
LOC: EDH 03:19 → 3CH 05:25
PROVIDERS: ADMIT Internal Medicine; ATTEND Internal Medicine
DX: A41.9 Sepsis, unspecified organism (principal); G93.41 Metabolic encephalopathy; N39.0 Urinary tract infection, site not specified; E44.0 Moderate protein-calorie malnutrition; E87.2 Acidosis; I13.0 Hypertensive heart and chronic kidney disease with heart failure and stage 1 through stage 4 chronic kidney disease, or unspecified chronic kidney disease; E03.9 Hypothyroidism, unspecified; E11.22 Type 2 diabetes mellitus with diabetic chronic kidney disease; E11.65 Type 2 diabetes mellitus with hyperglycemia; E11.51 Type 2 diabetes mellitus with diabetic peripheral angiopathy without gangrene; E78.5 Hyperlipidemia, unspecified; H40.9 Unspecified glaucoma; I25.10 Atherosclerotic heart disease of native coronary artery without angina pectoris; I48.91 Unspecified atrial fibrillation; I50.9 Heart failure, unspecified; N18.9 Chronic kidney disease, unspecified; R65.20 Severe sepsis without septic shock; Z68.23 Body mass index [BMI] 23.0-23.9, adult; Z79.01 Long term (current) use of anticoagulants; Z95.1 Presence of aortocoronary bypass graft; Z85.3 Personal history of malignant neoplasm of breast; Z83.3 Family history of diabetes mellitus; Z82.49 Family history of ischemic heart disease and other diseases of the circulatory system; Z80.8 Family history of malignant neoplasm of other organs or systems; Z83.6 Family history of other diseases of the respiratory system; Z82.0 Family history of epilepsy and other diseases of the nervous system
CPT/HCPCS: 36415; 71045; 80048; 80053; 81001; 82550; 82948; 83036; 83605; 83874; 84484; 85025; 85610; 85730; 87040; 87088; 87804; 87880; 93005; 94640; 94664; J0696; J1650; J1956; J7030

== ENCOUNTER 2019-01-23 07:02 | Inpatient (IN) | payer MEDICARE ==
[~2019-01-23] VITALS: Ht 149.9 cm; Wt 54.6 kg
[~2019-01-23 07:02] MED LIST changes: -AMLO2.5T3 PO; +AMLO2.5T4 PO; +APIX2.5T PO; -CARV12.511 PO; +CARV6.25 PO; +CETI10TA86 PO; +GUAI118L41 PO; +LEVO500T2 PO; -LORA-997 PO
[2019-01-23] MEDS ORDERED: ACETAMINOPHEN 325 MG TAB ONE (07:24)
[2019-01-23] MEDS ORDERED: ZOSYN 3.375GM+NS 50ML 50 ML IV ONE (07:54)
[2019-01-23 08:02] LABS: BASOPHILS % (AUTO) 0.3 % (0.0-5.0); EOSINOPHILS % (AUTO) 0.3 % (0.0-8.0); HEMATOCRIT 36.2 % (36-48); LYMPHOCYTES % (AUTO) 5.2 % (21.0-51.0); MEAN CORPUSCULAR HEMOGLOBIN 26.2 pg (27.0-33.0); MEAN CORPUSCULAR HGB CONC 33.5 g/dL (32.0-36.0); MEAN CORPUSCULAR VOLUME 78.2 fL (79-99); MONOCYTES % (AUTO) 2.7 % (3.0-13.0); NEUTROPHILS % (AUTO) 91.5 % (40.0-77.0); PLATELET COUNT (AUTO) 281 K/uL (130-400); RED BLOOD CELL COUNT(AUTO) 4.63 MIL/uL (4.00-5.50); WHITE BLOOD COUNT (AUTO) 12.3 K/uL (4.8-10.8)
[2019-01-23 08:17] LABS: CREATININE 1.6 mg/dL (0.5-1.5); POTASSIUM 3.6 mmol/L (3.5-5.1)
[2019-01-23 08:21] LABS: APPEARANCE,URINE CLEAR (CLEAR); BILIRUBIN,URINE NEGATIVE (NEGATIVE); COLOR,URINE YELLOW (YELLOW); GLUCOSE, URINE (UA) NEGATIVE (NEGATIVE); KETONES,URINE NEGATIVE (NEGATIVE); LEUKOCYTE ESTERASE ,URINE LARGE (NEGATIVE); NITRATE,URINE NEGATIVE (NEGATIVE); OCCULT BLOOD,URINE MODERATE (NEGATIVE); PH,URINE 7.5 (5.0-8.0); PROTEIN,URINE 100 mg/dL (NEGATIVE); UROBILINOGEN,URINE 0.2 mg/dL (0.2-1.0)
[2019-01-23 08:24] LABS: INR 1.01 (0.85-1.15); PARTIAL THROMBOPLASTIN TIME 26.6 SEC (26.3-35.5); PROTHROMBIN TIME 10.6 SEC (9.6-11.6)
[2019-01-23 08:30] LABS: BACTERIA,URINE Moderate /HPF (None Seen); RBC,URINE 0-1 /HPF (0-1)
[2019-01-23 08:31] LABS: SQUAMOUS EPITHELIAL CELL,UR 0-2 /HPF (0-2)
[2019-01-23 08:35] LABS: ALBUMIN 3.1 g/dL (3.5-5.0); BILIRUBIN,TOTAL 0.7 mg/dL (0.2-1.0); TOTAL PROTEIN, SERUM 8.1 g/dL (6.0-8.3)
[2019-01-23] MEDS ORDERED: CEFTRIAXONE SODIUM 1 GM ONE (11:49)
[2019-01-23] MEDS ORDERED: ACETAMINOPHEN 325 MG TAB PO PRN ×2 (14:45)
[2019-01-23] MEDS: CEFTRIAXONE SODIUM 1 GM IV SCH (14:45)
[2019-01-23] MEDS ORDERED: ONDANSETRON HCL 4 MG/2 ML VIAL IV PRN (14:45)
[2019-01-23 15:08] VITALS: BP 154/62
[2019-01-23] MEDS: INSULIN HUMULIN R 100 UNIT/ML 3ML SQ SCH ×2 (16:30→21:00)
[2019-01-23 19:00] VITALS: BP 153/65
--- NOTE | 2019-01-23 19:20 | NUR ---
REPORT GIVEN TO THOMAS TO [facility] JUST BROUGHT IN BY FAMILY.
[2019-01-23] MEDS ORDERED: FERR324T4 PO (19:26)
[2019-01-23] MEDS: HEPARIN SODIUM 5000UNIT/ML 1ML VIAL SQ SCH (20:39)
[2019-01-24 03:00] VITALS: BP 142/71
[2019-01-24 05:30] LABS: HEMATOCRIT 30.4 % (36-48); MEAN CORPUSCULAR HEMOGLOBIN 25.5 pg (27.0-33.0); MEAN CORPUSCULAR HGB CONC 32.2 g/dL (32.0-36.0); MEAN CORPUSCULAR VOLUME 79.1 fL (79-99); NUCLEATED RED BLOOD CELLS 0.1 % (0.0-0.19); PLATELET COUNT (AUTO) 251 K/uL (130-400); RED BLOOD CELL COUNT(AUTO) 3.84 MIL/uL (4.00-5.50); RED CELL DISTRIBUTION WIDTH 25.7 % (11.0-15.5); WHITE BLOOD COUNT (AUTO) 11.2 K/uL (4.8-10.8)
[2019-01-24 05:45] LABS: CREATININE 1.3 mg/dL (0.5-1.5); POTASSIUM 3.5 mmol/L (3.5-5.1)
[2019-01-24] MEDS ORDERED: SODIUM CHLORIDE 0.9% 1000ML 1,000 ML IV SCH (06:30)
[2019-01-24 07:30] VITALS: BP 157/84
[2019-01-24] MEDS: INSULIN HUMULIN R 100 UNIT/ML 3ML SQ SCH ×4 (07:30→21:00)
[2019-01-24] MEDS: HEPARIN SODIUM 5000UNIT/ML 1ML VIAL SQ SCH (08:32)
[2019-01-24] MEDS: FAMOTIDINE 20MG TAB 20 MG TAB PO SCH (08:33)
[2019-01-24 11:00] VITALS: BP 156/70
--- NOTE | 2019-01-24 14:00 | NUR ---
JOSEFLIGHT INFORMATION EXPEDITER MADE ROUNDS AND LET HER KNOW ON PT BEIING ON NS @75ML/HR, AND IF TO CONTINUE DUE TO HIST OF CHF ALSO FAMILY ASKING ABOUT HER MEDICATIONS. PER JOSE TO KEEP FLUID FOR NOW .
[2019-01-24] MEDS: CEFTRIAXONE SODIUM 1 GM IV SCH (15:28)
[2019-01-24] MEDS ORDERED: PHARMACY COMMUNICATION MISC SCH (15:45)
[2019-01-24 16:00] VITALS: BP 164/81
[2019-01-24] MEDS: CILOSTAZOL 100 MG TAB PO SCH (17:26)
[2019-01-24 20:51] VITALS: BP 178/76
[2019-01-24] MEDS: APIXABAN 2.5 MG TABLET PO SCH (20:57)
[2019-01-24] MEDS: LATANOPROST 2.5 ML DROPS OU SCH (20:57)
[2019-01-24] MEDS: CARVEDILOL 6.25 MG TABLET PO SCH (20:58)
[2019-01-25 00:06] VITALS: BP 101/56
[2019-01-25] MEDS: CILOSTAZOL 100 MG TAB PO SCH ×2 (01:12→12:24)
[2019-01-25 03:52] VITALS: BP 156/64
[2019-01-25 05:22] LABS: CREATININE 1.2 mg/dL (0.5-1.5); POTASSIUM 3.8 mmol/L (3.5-5.1)
[2019-01-25 05:29] LABS: BASOPHILS % (AUTO) 1.6 % (0.0-5.0); EOSINOPHILS % (AUTO) 2.9 % (0.0-8.0); HEMATOCRIT 30.1 % (36-48); MEAN CORPUSCULAR HEMOGLOBIN 26.1 pg (27.0-33.0); MEAN CORPUSCULAR HGB CONC 32.8 g/dL (32.0-36.0); MEAN CORPUSCULAR VOLUME 79.6 fL (79-99); MONOCYTES % (AUTO) 12.2 % (3.0-13.0); NEUTROPHILS % (AUTO) 48.3 % (40.0-77.0); NUCLEATED RED BLOOD CELLS 0.1 % (0.0-0.19); PLATELET COUNT (AUTO) 191 K/uL (130-400); RED BLOOD CELL COUNT(AUTO) 3.79 MIL/uL (4.00-5.50); RED CELL DISTRIBUTION WIDTH 25.3 % (11.0-15.5)
[2019-01-25] MEDS: LEVOTHYROXINE 75 MCG TABLET PO SCH (06:01)
[2019-01-25] MEDS: INSULIN HUMULIN R 100 UNIT/ML 3ML SQ SCH ×4 (07:25→20:50)
[2019-01-25 08:00] VITALS: BP 148/59
[2019-01-25] MEDS: Cyclosporine (Restasis) 1 EACH OU SCH ×2 (09:00→20:47)
[2019-01-25] MEDS: FAMOTIDINE 20MG TAB 20 MG TAB PO SCH (09:58)
[2019-01-25] MEDS: CLOPIDOGREL BISULFATE 75 MG TAB PO SCH (09:58)
[2019-01-25] MEDS: CARVEDILOL 6.25 MG TABLET PO SCH ×2 (09:59→20:46)
[2019-01-25] MEDS: FUROSEMIDE 20 MG TABLET PO SCH (09:59)
[2019-01-25] MEDS: CETIRIZINE HCL 5 MG TABLET PO SCH (09:59)
[2019-01-25] MEDS: PANTOPRAZOLE SODIUM 40 MG TABLET.DR PO SCH (10:00)
[2019-01-25] MEDS: AMLODIPINE BESYLATE 2.5 MG TAB PO SCH (10:00)
[2019-01-25] MEDS: ISOSORBIDE MONO 30MG TAB SR PO SCH (10:00)
[2019-01-25] MEDS: APIXABAN 2.5 MG TABLET PO SCH ×2 (10:00→20:46)
[2019-01-25] MEDS: FERROUS SULFATE 325 MG TABLET.DR PO SCH (10:00)
[2019-01-25 11:00] VITALS: BP 152/63
[2019-01-25] MEDS: ASPIRIN 81MG TAB.CHEW PO SCH (12:24)
[2019-01-25] MEDS ORDERED: LEVOFLOXACIN 500 MG/D5W 100 ML 100 ML IV SCH (15:45)
[2019-01-25 16:00] VITALS: BP 135/50
--- NOTE | 2019-01-25 19:45 | NUR ---
PM Assessment Received pt with family around, routine assessment done plan of care discuss, made aware pt is still pending to be seen by Dr. Ching ID specialist. Per family claimed that the pt has not been sleeping well, requested if we can give something to relax the pt as she seems to be anxious. Assurance given to the family & made aware that I will notify MD of their concerns. I explained to the family that sometimes elderly pt especially those with Dementia when they are in unfamiliar place it's hard for such individual to adjust easily.
[2019-01-25 20:00] VITALS: BP 143/50
[2019-01-25] MEDS ORDERED: DIPHENHYDRAMINE HCL 25 MG CAPSULE PO SCH (21:00)
[2019-01-25] MEDS: LATANOPROST 2.5 ML DROPS OU SCH (21:00)
[2019-01-26] VITALS (8 sets, daily range): BP systolic 112–171; BP diastolic 40–83
[2019-01-26] MEDS: CILOSTAZOL 100 MG TAB PO SCH ×2 (01:08→12:21)
--- NOTE | 2019-01-26 05:30 | NUR ---
Re: AMS Daughter at the bedside verbalizes concern pt of not being too responsive, VS check BP 112/82, P 96, RR 16, O2 sat 97%, awaken pt noted respond to simple open ended question, assurance given to the pt's daughter this could be the pt's respond to medication Benadryl that I gave last night since they have concern of pt not sleeping well, noted anxious. Made aware we will continue to monitor.
[2019-01-26] MEDS: INSULIN HUMULIN R 100 UNIT/ML 3ML SQ SCH ×4 (05:56→20:34)
[2019-01-26] MEDS: Cyclosporine (Restasis) 1 EACH OU SCH ×2 (09:00→20:33)
[2019-01-26] MEDS: CEFAZOLIN SODIUM 1 GM VIAL IVP SCH ×2 (09:53→17:54)
[2019-01-26] MEDS: CETIRIZINE HCL 5 MG TABLET PO SCH (10:28)
[2019-01-26] MEDS: APIXABAN 2.5 MG TABLET PO SCH ×2 (10:28→20:32)
[2019-01-26] MEDS: ISOSORBIDE MONO 30MG TAB SR PO SCH (10:28)
[2019-01-26] MEDS: CLOPIDOGREL BISULFATE 75 MG TAB PO SCH (10:29)
[2019-01-26] MEDS: FERROUS SULFATE 325 MG TABLET.DR PO SCH (10:29)
[2019-01-26] MEDS: AMLODIPINE BESYLATE 2.5 MG TAB PO SCH (10:29)
[2019-01-26] MEDS: LEVOTHYROXINE 75 MCG TABLET PO SCH (10:29)
[2019-01-26] MEDS: PANTOPRAZOLE SODIUM 40 MG TABLET.DR PO SCH (10:30)
[2019-01-26] MEDS: FAMOTIDINE 20MG TAB 20 MG TAB PO SCH (10:30)
[2019-01-26] MEDS: CARVEDILOL 6.25 MG TABLET PO SCH ×2 (10:30→20:33)
[2019-01-26] MEDS: FUROSEMIDE 20 MG TABLET PO SCH (10:30)
[2019-01-26] MEDS: ASPIRIN 81MG TAB.CHEW PO SCH (10:33)
[2019-01-26] MEDS ORDERED: LEVOFLOXACIN 250 MG/D5W 50ML 50 ML IVPB SCH (16:00)
--- NOTE | 2019-01-26 16:50 | NUR ---
cm note met with patients daughter nadia, pt unable to communicate.dx alzheimer's. pt lives with daughter Luz Maria, pt has provider 7a-5pm daily. pt ambulates very short distances with arabella, and has w/c and hospital bed at home. discussed with 2 daughters present that md has ordered snf level of care for rehab, daughters states pt has been at [facility] and at [facility] in the past, state they are agreeable to placement at [facility] for rehab, states they will update the rest of the family, siblings. choice letter and ANY signed. Addendum: 01/26/19 at 1653 by BRII BOJORQUEZ CM Amended: Links added.
[2019-01-26] MEDS: LATANOPROST 2.5 ML DROPS OU SCH (20:33)
[2019-01-27] MEDS: CILOSTAZOL 100 MG TAB PO SCH ×2 (00:32→12:40)
[2019-01-27] MEDS: CEFAZOLIN SODIUM 1 GM VIAL IVP SCH ×3 (02:02→20:00)
[2019-01-27 03:46] VITALS: BP 117/74
[2019-01-27] MEDS: INSULIN HUMULIN R 100 UNIT/ML 3ML SQ SCH ×4 (05:55→22:51)
[2019-01-27] MEDS: LEVOTHYROXINE 75 MCG TABLET PO SCH (06:10)
[2019-01-27 08:00] VITALS: BP 109/60
[2019-01-27] MEDS: ISOSORBIDE MONO 30MG TAB SR PO SCH (08:57)
[2019-01-27] MEDS: AMLODIPINE BESYLATE 2.5 MG TAB PO SCH (08:58)
[2019-01-27] MEDS: FAMOTIDINE 20MG TAB 20 MG TAB PO SCH (08:58)
[2019-01-27] MEDS: CARVEDILOL 6.25 MG TABLET PO SCH ×2 (08:58→22:58)
[2019-01-27] MEDS: PANTOPRAZOLE SODIUM 40 MG TABLET.DR PO SCH (08:58)
[2019-01-27] MEDS: CETIRIZINE HCL 5 MG TABLET PO SCH (08:59)
[2019-01-27] MEDS: CLOPIDOGREL BISULFATE 75 MG TAB PO SCH (08:59)
[2019-01-27] MEDS: FERROUS SULFATE 325 MG TABLET.DR PO SCH (08:59)
[2019-01-27] MEDS: FUROSEMIDE 20 MG TABLET PO SCH (08:59)
[2019-01-27] MEDS: APIXABAN 2.5 MG TABLET PO SCH ×2 (08:59→22:57)
[2019-01-27] MEDS: Cyclosporine (Restasis) 1 EACH OU SCH ×2 (09:00→21:00)
[2019-01-27 12:00] VITALS: BP 152/75
--- NOTE | 2019-01-27 13:53 | NUR ---
DYSPHAGIA EVAL COMPLETE. +S/S OF ASPIRATION WITH THIN AND SOLIDS. RECOMMEND PUREED, NECTAR-THICK LIQUIDS; PILLS CRUSHED. PATIENT INFORMATION: Pt IS A 84 Y.O. FEMALE REFERRED FOR A BEDSIDE DYSPHAGIA EVALUATION SECONDARY TO COUGHING WITH PILLS. Pt AAOX2 AND COOPERATIVE DURING THE EVALUATION. Pt WITH MISSING PARTIAL DENTURES AT THE TIME OF THE EVALUATION. Pt CURRENTLY ADMITTED SECONDARY TO CYSTITIS. Pt HAS A PAST MEDICAL AND SOCIAL HISTORY SIGNIFICANT FOR UTI, DM, HTN, HYPERLIPIDEMIA, CORONARY ARTERY DISEASE, PERIPHERAL VASCULAR DISEASE WITH STENT PLACEMENT TO LEFT LOWER EXTREMITY, BREAST CANCER S/P RIGHT MASTECTOMY, ALZHEIMER'S, CHF, CABG, PACEMAKER PLACEMENT, GALLBLADDER SURGERY. EVALUATION: MILD-MODERATE OROPHARYNGEAL DYSPHAGIA CAUSED BY DECREASED ORAL MOTOR COORDINATION, DECREASED INTRA-ORAL SENSATION, DELAYED PHARYNGEAL RESPONSE TIME, MULTIPLE SWALLOWS, EVIDENCED BY DECREASED ROTARY MOTION DURING MASTICATION, REMOVAL OF SOLID FROM ORAL CAVITY BY EXTRACTOR PULLER, RESIDUE IN ORAL CAVITY, RESULTING IN +S/S OF ASPIRATION OF COUGH RESPONSE WITH THIN LIQUIDS. RECOMMENDATIONS: 1. PUREED, NECTAR-THICK LIQUID DIET; PILLS CRUSHED. 2. COMPENSATORY STRATEGIES (PROPHYLAXIS): *SEATED AT 90 DEGREE ANGLE *ASSIST WITH P.O. *ALTERNATE BITES AND SIPS EXTRACTOR PULLER EDUCATED FAMILY ON RISKS AND CONSEQUENCES OF ASPIRATION. ALL QUESTIONS ANSWERED AT THIS TIME. THICKENER WAS PROVIDED BY EXTRACTOR PULLER AND THICKENING TO LEVEL OF NECTAR WAS DEMONSTRATED. G-CODES SWALLOWING: [id number] Addendum: 01/27/19 at 1353 by GRACIELA MENDIOLA Amended: Links added.
--- NOTE | 2019-01-27 14:06 | NUR ---
CM Note: [facility] acceptance CM met with pt and daughter, agreeable to follow through w/[facility], spoke to Richelle Gaffney, pt has acceptance, EMS arranged and faxed for today, primary nurse to call [facility] once pt ready to DC. Primary nurse aware. CM to cont to follow up.
--- NOTE | 2019-01-27 14:17 | NUR ---
PICC LINE Dr. Ching stated 10 days of Iv antibiotics at [facility]. Stated "no need for PICC".
[2019-01-27 16:00] VITALS: BP 140/72
[2019-01-27 20:28] VITALS: BP 126/94
[2019-01-27] MEDS: LATANOPROST 2.5 ML DROPS OU SCH (22:59)
[2019-01-28 00:15] VITALS: BP 113/70
[2019-01-28] MEDS: CEFAZOLIN SODIUM 1 GM VIAL IVP SCH ×3 (02:09→18:00)
[2019-01-28] MEDS: CILOSTAZOL 100 MG TAB PO SCH ×2 (02:09→12:58)
[2019-01-28 04:11] VITALS: BP 126/84
[2019-01-28 05:54] LABS: BASOPHILS % (AUTO) 0.7 % (0.0-5.0); EOSINOPHILS % (AUTO) 1.9 % (0.0-8.0); HEMATOCRIT 27.7 % (36-48); LYMPHOCYTES % (AUTO) 48.1 % (21.0-51.0); MEAN CORPUSCULAR HEMOGLOBIN 25.7 pg (27.0-33.0); MEAN CORPUSCULAR HGB CONC 32.3 g/dL (32.0-36.0); MEAN CORPUSCULAR VOLUME 79.6 fL (79-99); MONOCYTES % (AUTO) 12.4 % (3.0-13.0); NEUTROPHILS % (AUTO) 36.9 % (40.0-77.0); NUCLEATED RED BLOOD CELLS 0.1 % (0.0-0.19); PLATELET COUNT (AUTO) 268 K/uL (130-400); RED BLOOD CELL COUNT(AUTO) 3.48 MIL/uL (4.00-5.50); RED CELL DISTRIBUTION WIDTH 25.1 % (11.0-15.5); WHITE BLOOD COUNT (AUTO) 7.7 K/uL (4.8-10.8)
[2019-01-28 05:59] LABS: ALBUMIN 2.5 g/dL (3.5-5.0); BILIRUBIN,TOTAL 0.2 mg/dL (0.2-1.0); CREATININE 1.6 mg/dL (0.5-1.5); POTASSIUM 3.5 mmol/L (3.5-5.1); TOTAL PROTEIN, SERUM 6.6 g/dL (6.0-8.3)
[2019-01-28] MEDS: INSULIN HUMULIN R 100 UNIT/ML 3ML SQ SCH ×3 (06:11→16:30)
[2019-01-28] MEDS: LEVOTHYROXINE 75 MCG TABLET PO SCH (06:44)
[2019-01-28 08:00] VITALS: BP 134/52
[2019-01-28] MEDS ORDERED: POTASSIUM CHLORIDE 20 MEQ ERTAB PO PRN (08:15)
[2019-01-28] MEDS ORDERED: POTASSIUM CHLORIDE 10% ELIXIR 20 MEQ/15 ML UDCUP PO PRN (08:15)
[2019-01-28] MEDS ORDERED: POTASSIUM CHLORIDE 20MEQ/100ML 100 ML IV PRN (08:15)
[2019-01-28] MEDS ORDERED: LIDOCAINE HCL-MPF 1% 2ML VIAL IVP PRN (08:15)
[2019-01-28] MEDS: FAMOTIDINE 20MG TAB 20 MG TAB PO SCH (09:00)
[2019-01-28] MEDS: Cyclosporine (Restasis) 1 EACH OU SCH (09:00)
[2019-01-28] MEDS: CARVEDILOL 6.25 MG TABLET PO SCH (09:00)
[2019-01-28] MEDS: APIXABAN 2.5 MG TABLET PO SCH (09:00)
[2019-01-28] MEDS ORDERED: PHENAZOPYRIDINE HCL 200 MG TABLET PO SCH ×2 (09:00)
[2019-01-28] MEDS: CETIRIZINE HCL 5 MG TABLET PO SCH (11:06)
[2019-01-28] MEDS: AMLODIPINE BESYLATE 2.5 MG TAB PO SCH (11:06)
[2019-01-28] MEDS: FUROSEMIDE 20 MG TABLET PO SCH (11:07)
[2019-01-28] MEDS: PANTOPRAZOLE SODIUM 40 MG TABLET.DR PO SCH (11:07)
[2019-01-28] MEDS: CLOPIDOGREL BISULFATE 75 MG TAB PO SCH (11:07)
[2019-01-28] MEDS: ISOSORBIDE MONO 30MG TAB SR PO SCH (11:08)
[2019-01-28] MEDS: FERROUS SULFATE 325 MG TABLET.DR PO SCH (11:08)
[2019-01-28 12:00] VITALS: BP 121/63
[2019-01-28 16:00] VITALS: BP 122/49
--- NOTE | 2019-01-28 17:00 | NUR ---
Pt D/C and Pending EMS transport. Pt d/c at this time, discharge instruction given, pt verbalized understanding of d/c instruction and signed d/c paper with daughter, Lizz Sorto, awaiting EMS picker and packer to [facility], IV out safely, not acte distress noted, Report call to WALKER Damian at [facility], pt going for rehab and abx tx, all question and concerns answered.
== END 2019-01-28 19:20 | DRG 871 ==
LOC: EDH 07:02 → EDHIP 10:51 → OBSVTOIN 10:51 → 3DH 14:44
PROVIDERS: ADMIT Internal Medicine; ATTEND Internal Medicine
DX: A41.51 Sepsis due to Escherichia coli [E. coli] (principal); J18.9 Pneumonia, unspecified organism; I13.0 Hypertensive heart and chronic kidney disease with heart failure and stage 1 through stage 4 chronic kidney disease, or unspecified chronic kidney disease; E44.0 Moderate protein-calorie malnutrition; N18.3 Chronic kidney disease, stage 3 (moderate); E11.22 Type 2 diabetes mellitus with diabetic chronic kidney disease; G30.9 Alzheimer's disease, unspecified; D64.9 Anemia, unspecified; E03.9 Hypothyroidism, unspecified; E11.51 Type 2 diabetes mellitus with diabetic peripheral angiopathy without gangrene; E11.649 Type 2 diabetes mellitus with hypoglycemia without coma; E78.5 Hyperlipidemia, unspecified; F02.80 Dementia in other diseases classified elsewhere, unspecified severity, without behavioral disturbance, psychotic disturbance, mood disturbance, and anxiety; I25.10 Atherosclerotic heart disease of native coronary artery without angina pectoris; I50.9 Heart failure, unspecified; Z66 Do not resuscitate; N30.90 Cystitis, unspecified without hematuria; Z74.01 Bed confinement status; Z80.9 Family history of malignant neoplasm, unspecified; Z82.49 Family history of ischemic heart disease and other diseases of the circulatory system; Z83.3 Family history of diabetes mellitus; Z85.3 Personal history of malignant neoplasm of breast; Z90.11 Acquired absence of right breast and nipple; Z95.0 Presence of cardiac pacemaker; Z95.1 Presence of aortocoronary bypass graft; Z90.49 Acquired absence of other specified parts of digestive tract; Z68.24 Body mass index [BMI] 24.0-24.9, adult
CPT/HCPCS: 36415; 71045; 80048; 80053; 81001; 82550; 82948; 83605; 83880; 84484; 85025; 85027; 85610; 85730; 87040; 87077; 87088; 87186; 87804; 92610; 93005; 97039; A4218; A6250; G0378; J0690; J0696; J1644; J1815; J1956; J2543; Q0163

== ENCOUNTER → 2019-04-29 | Outpatient (CLI) | payer MEDICARE ==
[~2019-04-29] MED LIST changes: -AMOX-426 PO; +FERR324T4 PO; -GUAI118L41 PO; -LEVO500T2 PO
== END | disposition home or self-care (01) ==
LOC: SHCH 10:00
PROVIDERS: ATTEND Internal Medicine Cardiovascular Disease
DX: I11.9 Hypertensive heart disease without heart failure (principal); I35.8 Other nonrheumatic aortic valve disorders
CPT/HCPCS: 93306